=== PATIENT | female | born 1995 | race Caucasian/White ===

== ENCOUNTER 2017-10-30 12:32 | Observation (INO) | payer BC ==
[~2017-10-30] VITALS: Ht 160 cm; Wt 60.8 kg
[2017-10-30 12:54] VITALS: BP 120/80
[2017-10-30 13:16] LABS: BASO % 0 % (0-3); EOS % 0 % (0-3); HEMATOCRIT 43.7 % (36.0-47.0); LYMPH # 2.2 x10^3/uL (1.0-4.8); LYMPH % 23 % (24-48); MEAN CORPUSCULAR HEMOGLOBIN 32 pg (25-35); MEAN CORPUSCULAR HGB CONC 34 g/dL (31-37); MEAN CORPUSCULAR VOLUME 94 fL (79-100); MONO # 0.5 x10^3/uL (0.0-1.1); MONO % 5 % (0-9); NEUT # 6.9 x10^3uL (1.8-7.7); NEUT % 71 % (31-73); PLATELET COUNT 256 x10^3/uL (140-400); RED BLOOD COUNT 4.64 x10^6/uL (3.50-5.40); WHITE BLOOD COUNT 9.7 x10^3/uL (4.0-11.0)
--- NOTE | 2017-10-30 13:24 | NUR ---
NSG NOTE; ADMISSION ADMIT TO ROOM 115 AT 1245 VIA AMB ACCOMP BY PARENTS SHE WENT TO DR KRAMER'S OFFICE TODAY WITH C/O RUQ PAIN, EPIGASTRIC GAS AND BLOATING, WHERE THEY DISCOVERED HER HEART RATE TO BE 127.
[2017-10-30 13:46] LABS: BILIRUBIN,URINE NEG (NEG); CLARITY,URINE CLEAR; COLOR,URINE YELLOW; GLUCOSE,URINE NEG (NEG)
[2017-10-30 13:47] LABS: BACTERIA,URINE 0 /HPF (0-FEW); NITRITE,URINE NEG (NEG); RBC,URINE 0 /HPF (0-2); SQUAMOUS EPITHELIAL CELL,UR FEW /LPF; UROBILINOGEN,URINE 0.2 mg/dL (0.2 mg/dL); WBC,URINE 0 /HPF (0-4)
[2017-10-30] MEDS ORDERED: NORE-68 PO (13:51)
--- NOTE | 2017-10-30 13:53 | NUR ---
NSG NOTE; DR PRINCE CONSULT CALLED TO SHI MURO AT OFFICE AT 1330. I SPOKE WITH LUCINA MURO AT [id number] WHO STATED SHE WILL SEE THE PT IN THE AM
--- NOTE | 2017-10-30 14:02 | RAD ---
EXAM: Chest, 2 views. HISTORY: Tachycardia. COMPARISON: None. FINDINGS: 2 views of chest are obtained. There is no infiltrate, pleural effusion or pneumothorax. The heart is normal in size. IMPRESSION: No acute pulmonary finding. Electronically signed by: Sara Castañeda MD (10/30/2017 1:58 PM) [place] [id number]
[2017-10-30 14:04] LABS: ALBUMIN 4.5 g/dL (3.4-5.0); ALBUMIN/GLOBULIN RATIO 1.1 (1.0-1.7); CALCIUM 9.1 mg/dL (8.5-10.1); CREATININE 0.9 mg/dL (0.6-1.0); TOTAL BILIRUBIN 0.5 mg/dL (0.2-1.0); TOTAL PROTEIN 8.5 g/dL (6.4-8.2)
[2017-10-30 14:07] LABS: AMPHETAMINE/METHAMPHETAMINE NEG (NEG); BARBITURATES NEG (NEG); BENZODIAZEPINES NEG (NEG); CANNABINOIDS NEG (NEG); COCAINE NEG (NEG); METHADONE NEG (NEG); OPIATES NEG (NEG); PHENCYCLIDINE NEG (NEG)
[2017-10-30] MEDS ORDERED: ELECTROLYTE (NON-ICU) PROTOCOL MC PRN (15:00)
[2017-10-30 15:12] LABS: MAGNESIUM 1.8 mg/dL (1.8-2.4)
[2017-10-30 15:28] VITALS: BP 116/68
[2017-10-30] MEDS ORDERED: cefTRIAXone IV Push 1 GM VIAL. IVP SCH (15:30)
--- NOTE | 2017-10-30 16:03 | PDOC2 ---
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 She was noted to be tachycardic and consult was called. She was given one dose of metoprolol in the doctors office. she currently is resting comfortably and visiting with family. She denies chest pain or discomfort, dyspnea or syncope. She reports sensation of fast heart rate occasionally over the last couple days but thinks it has been more constant than intermittent. she denies other symptoms Current Medications Current Medications Apixaban (Eliquis) 2.5 mg BID PO ; Start 10/30/17 at 21:00 Ceftriaxone Sodium 1 gm/ Sodium Chloride 50 ml @ 100 mls/hr Q24H IV ; Start at 15:00; Status UNV Info (Non-Icu Electrolyte Protocol) 1 ea CONT PRN PRN MC PER PROTOCOL; Start at 15:00 Non-Formulary Medication (Noreth A-Et Estra/Fe Fumarate (Microgestin Fe 1.5-30 Tab)) 1 tab DAILY PO ; Start 10/31/17 at 09:00; Status UNV Ceftriaxone Sodium (Rocephin) 1 gm Q24H IVP ; Start 10/30/17 at 15:30 Active Scripts Active Reported Microgestin Fe 1.5-30 Tab (Noreth A-Et Estra/Fe Fumarate) 1 Each Tablet 1 Tab PO DAILY LAST DOSE GIVEN: DATE: TIME: NEXT DOSE DUE: DATE: TIME: Allergies: Coded Allergies: No Known Drug Allergies (Unverified , 10/30/17) General: Alert, Oriented X3, Cooperative, No acute distress HEENT: Atraumatic, EOMI, Mucous membr. moist/pink Lungs: Clear to auscultation, Normal air movement Heart: Regular rate, Normal S1, Normal S2, No murmurs, Other (no gallops clicks or rubs) Abdomen: Normal bowel sounds Extremities: No cyanosis, No edema, Normal pulses Neuro: Normal speech, Strength at 5/5 X4 ext Psych/Mental Status: Mental status NL, Mood NL VITALS Vital Signs Date Time Temp Pulse Resp B/P (MAP) Pulse Ox O2 Delivery O2 Flow Rate FiO2 9/13/18 15:28 98.7 104 20 116/68 (84) 99 Room Air Labs Laboratory Tests Test 10/30/17 12:58 10/30/17 13:00 White Blood Count 9.7 x10^3/uL (4.0-11.0) Red Blood Count 4.64 x10^6/uL (3.50-5.40) Hemoglobin 15.0 g/dL (12.0-15.5) Hematocrit 43.7 % (36.0-47.0) Mean Corpuscular Volume 94 fL (79-100) Mean Corpuscular Hemoglobin 32 pg (25-35) Mean Corpuscular Hemoglobin Concent 34 g/dL (31-37) Red Cell Distribution Width 12.0 % (11.5-14.5) Platelet Count 256 x10^3/uL (140-400) Neutrophils (%) (Auto) 71 % (31-73) Lymphocytes (%) (Auto) 23 % (24-48) Monocytes (%) (Auto) 5 % (0-9) Eosinophils (%) (Auto) 0 % (0-3) Basophils (%) (Auto) 0 % (0-3) Neutrophils # (Auto) 6.9 x10^3uL (1.8-7.7) Lymphocytes # (Auto) 2.2 x10^3/uL (1.0-4.8) Monocytes # (Auto) 0.5 x10^3/uL (0.0-1.1) Eosinophils # (Auto) 0.0 x10^3/uL (0.0-0.7) Basophils # (Auto) 0.0 x10^3/uL (0.0-0.2) Erythrocyte Sedimentation Rate 5 (0-25) D-Dimer (Tanisha) < 0.19 mg/L (0.00-0.50) Maternal Serum HCG Beta Subunit < 1 mIU/mL (0-6) Sodium Level 137 mmol/L (136-145) Potassium Level 3.0 mmol/L (3.5-5.1) Chloride Level 99 mmol/L (98-107) Carbon Dioxide Level 27 mmol/L (21-32) Anion Gap 11 (6-14) Blood Urea Nitrogen 11 mg/dL (7-20) Creatinine 0.9 mg/dL (0.6-1.0) Estimated GFR (Cockcroft-Gault) 79.0 BUN/Creatinine Ratio 12 (6-20) Glucose Level 109 mg/dL (70-99) Lactic Acid Level 2.9 mmol/L (0.4-2.0) Calcium Level 9.1 mg/dL (8.5-10.1) Magnesium Level 1.8 mg/dL (1.8-2.4) Total Bilirubin 0.5 mg/dL (0.2-1.0) Aspartate Amino Transf (AST/SGOT) 20 U/L (15-37) Alanine Aminotransferase (ALT/SGPT) 24 U/L (14-59) Alkaline Phosphatase 89 U/L (46-116) Creatine Kinase 95 U/L (26-192) Troponin I Quantitative < 0.017 ng/mL (0-0.055) Total Protein 8.5 g/dL (6.4-8.2) Albumin 4.5 g/dL (3.4-5.0) Albumin/Globulin Ratio 1.1 (1.0-1.7) Amylase Level 69 U/L (25-115) Urine Collection Type Unknown Urine Color Yellow Urine Clarity Clear Urine pH 6.0 Urine Specific [place] 1.015 Urine Protein Neg (NEG-TRACE) Urine Glucose (UA) Neg mg/dL (NEG) Urine Ketones (Stick) Neg mg/dL (NEG) Urine Blood Neg (NEG) Urine Nitrite Neg (NEG) Urine Bilirubin Neg (NEG) Urine Urobilinogen Dipstick 0.2 mg/dL (0.2 mg/dL) Urine Leukocyte Esterase Neg (NEG) Urine RBC 0 /HPF (0-2) Urine WBC 0 /HPF (0-4) Urine Squamous Epithelial Cells Few /LPF Urine Bacteria 0 /HPF (0-FEW) Urine Opiates Screen Neg (NEG) Urine Methadone Screen Neg (NEG) Urine Barbiturates Neg (NEG) Urine Phencyclidine Screen Neg (NEG) Urine Amphetamine/Methamphetamine Neg (NEG) Urine Benzodiazepines Screen Neg (NEG) Urine Cocaine Screen Neg (NEG) Urine Cannabinoids Screen Neg (NEG) Urine Ethyl Alcohol Neg (NEG) Images EKG sinus tachycardia without acute abn Assessment/Plan 1. sinus tachycardia - likely reactive. check echo for LV function and structure. Suggest outpatient MCT to evaluate for inappropriate sinus tach. 2. abd pain, ?gallbladder. per PCP JASON,LUCINA J COMMERCIAL SINGER Oct 30, 2017 16:03
--- NOTE | 2017-10-30 17:00 | EKG ---
[address] [address] Test Date: 2017-10-30 Test Time: 16:19:31 Pat Name: KARIS MAGAÑA Department: Room: 115 A Gender: F Communications Lead: : 1995 Requested By: LUCINA GOMEZ Order Number: [id number] Reading MD: Nishant Schulz MD Measurements Intervals [place] Rate: 97 P: 72 CT: 112 QRS: 82 QRSD: 82 T: 37 QT: 354 QTc: 454 Interpretive Statements SINUS RHYTHM Electronically Signed On 10-31-2017 12:25:02 CDT by Nishant Schulz MD
[2017-10-30 19:19] VITALS: BP 115/76
[2017-10-30] MEDS: APIXABAN 2.5 MG TABLET PO SCH (20:41)
[2017-10-30] MEDS: POTASSIUM CHLORIDE 20 MEQ/15 ML ORAL LIQUID. PO SCH ×2 (20:43→20:54)
--- NOTE | 2017-10-30 21:00 | NUR ---
Attempted to give initially dose of Eliquis. Reviewed application of the medication and risks/benefits with pt/family. Pt and family request to hold off on taking Eliquis until they can speech to the doctor in the am. Will notify on coming RN.
[2017-10-30] MEDS: POTASSIUM CHLORIDE 20 MEQ TABLET.ER. PO SCH (21:16)
--- NOTE | 2017-10-30 22:18 | NUR ---
Pt unable to tolerate liquid potassium, order switched to tablets.
[2017-10-30 22:58] VITALS: BP 111/67
[2017-10-31] MEDS: POTASSIUM CHLORIDE 20 MEQ TABLET.ER. PO SCH (01:15)
[2017-10-31 05:02] VITALS: BP 100/66
[2017-10-31 06:58] LABS: BASO % 1 % (0-3); EOS % 1 % (0-3); HEMATOCRIT 40.7 % (36.0-47.0); HEMOGLOBIN 14.1 g/dL (12.0-15.5); LYMPH # 2.5 x10^3/uL (1.0-4.8); LYMPH % 38 % (24-48); MEAN CORPUSCULAR HEMOGLOBIN 33 pg (25-35); MEAN CORPUSCULAR HGB CONC 35 g/dL (31-37); MEAN CORPUSCULAR VOLUME 94 fL (79-100); MONO # 0.5 x10^3/uL (0.0-1.1); MONO % 7 % (0-9); NEUT # 3.5 x10^3uL (1.8-7.7); NEUT % 54 % (31-73); PLATELET COUNT 226 x10^3/uL (140-400); RED BLOOD COUNT 4.33 x10^6/uL (3.50-5.40); RED CELL DISTRIBUTION WIDTH 12.1 % (11.5-14.5); WHITE BLOOD COUNT 6.5 x10^3/uL (4.0-11.0)
--- NOTE | 2017-10-31 07:55 | CARD ---
MR#: [id number] Date of Study: 10/30/2017 Ordering Physician: SADE KRAMER, Referring Physician: SADE KRAMER, Tech: Gladis Raymond APPROVED REPORT EXAM: Two-dimensional and M-mode echocardiogram with Doppler and color Doppler. Other Information Quality : GoodHR: 110bpm INDICATION Tachycardia 2D DIMENSIONS RVDd2.5 (2.9-3.5cm)Left Atrium(2D)1.8 (1.6-4.0cm) IVSd0.6 (0.7-1.1cm)Aortic Root(2D)2.6 (2.0-3.7cm) LVDd3.6 (3.9-5.9cm)LVOT Diameter2.0 (1.8-2.4cm) PWd0.9 (0.7-1.1cm)LVDs1.8 (2.5-4.0cm) FS (%) 50.1 %SV44.9 ml LVEF(%)82.3 (>50%) Aortic Valve AoV Peak Pierce.156.3cm/sAoV VTI30.9cm AO Peak GR.9.8mmHgLVOT Peak Pierce.124.8cm/s LVOT VTI 22.60cmAO Mean GR.6mmHg ANDRY (VMAX)2.61hi8XTV (VTI)2.23cm2 Mitral Valve MV E Equhsnjv25.7cm/sMV DECEL LITM516rz MV A Miexvzda79.2cm/sE/A Ratio0.9 Tricuspid Valve TR P. Akjmzpkw616ck/sRAP VKAPUEAQ8tuIp TR Peak Gr.51omXkIUXQ79utQw Pulmonary Vein S1 Kbawceqj69.7cm/sD2 Sgzmqygp81.0cm/s LEFT VENTRICLE The left ventricle is normal size. There is normal left ventricular wall thickness. The left ventricu lar systolic function is normal. The Ejection Fraction is 65-70%. There is normal LV segmental wall m otion. RIGHT VENTRICLE The right ventricle is normal size. There is normal right ventricular wall thickness. The right ventr icular systolic function is normal. ATRIA The left atrium size is normal. The right atrium size is normal. The interatrial septum is intact wit h no evidence for an atrial septal defect or patent foramen ovale as noted on 2-D or Doppler imaging. AORTIC VALVE The aortic valve is normal in structure and function. Doppler and Color Flow revealed no significant aortic regurgitation. There is no significant aortic valvular stenosis. MITRAL VALVE The mitral valve is normal in structure and function. There is no mitral valve stenosis. Doppler and Color Flow revealed no mitral valve regurgitation noted. TRICUSPID VALVE The tricuspid valve is normal in structure and function. Doppler and Color Flow revealed trace tricus pid regurgitation. There is no tricuspid valve stenosis. PULMONIC VALVE Doppler and Color Flow revealed no pulmonic valvular regurgitation. GREAT VESSELS The aortic root is normal in size. Normal pulmonary venous flow (Doppler). The IVC is normal in size and collapses >50% with inspiration. PERICARDIAL EFFUSION There is no evidence of significant pericardial effusion. Critical Notification Critical Value: No <Conclusion> The left ventricular systolic function is normal. The Ejection Fraction is 65-70%. There is normal LV segmental wall motion. Doppler and Color Flow revealed trace tricuspid regurgitation. There is no evidence of significant pericardial effusion. Signed by : Bill Whitaker, Electronically Approved : 10/31/2017 07:54:21
--- NOTE | 2017-10-31 08:08 | RAD ---
Abdominal ultrasound, 10/30/2017: HISTORY: Upper abdominal and chest pain The gallbladder is within normal limits in size. There is no sonographic evidence of cholelithiasis. The gallbladder shepard are not thickened. The common hepatic duct is of normal caliber. The visualized portions of the liver, pancreas, spleen and both kidneys show no abnormality. The abdominal aorta and inferior vena cava are unremarkable. No free fluid is evident in the abdomen. IMPRESSION: No significant abdominal abnormality is detected. Electronically signed by: Juwan Wright MD (10/31/2017 8:05 AM) [facility]
--- NOTE | 2017-10-31 08:56 | PDOC ---
PROGRESS NOTES Assessment 1. sinus tachycardia - likely reactive, currently improved. Telemetry reviewed. questionable episodes of atrial tachycardia. Echo WNL. Suggest outpatient event monitoring and follow up. FU scheduled 11/26/17 @3:30pm with Dr Schulz in the LV office. Subjective episodes of palpitations when someone walks through the door. reports being anxious. no chest pain, dyspnea or syncope. Objective Vital Signs Date Time Temp Pulse Resp B/P (MAP) Pulse Ox O2 Delivery O2 Flow Rate FiO2 10/31/17 05:02 98.4 93 20 100/66 (77) 98 Room Air Intake and Output 10/31/17 07:00 Intake Total 1810 ml Output Total 200 ml Balance 1610 ml Intake Oral 1810 ml Output Urine Total 200 ml # Voids 5 Heart: Regular rate, Normal S1, Normal S2, No murmurs Extremities: No cyanosis, No edema General: Alert, Oriented X3, Cooperative, No acute distress Lungs: Clear to auscultation Neuro: Strength at 5/5 X4 ext Psych/Mental Status: Mental status NL, Mood NL Review of Relevant I have reviewed the following items april (where applicable) has been applied. Labs Laboratory Tests Test 10/30/17 12:58 10/30/17 13:00 10/30/17 17:16 10/31/17 06:03 White Blood Count 9.7 x10^3/uL (4.0-11.0) 6.5 x10^3/uL (4.0-11.0) Red Blood Count 4.64 x10^6/uL (3.50-5.40) 4.33 x10^6/uL (3.50-5.40) Hemoglobin 15.0 g/dL (12.0-15.5) 14.1 g/dL (12.0-15.5) Hematocrit 43.7 % (36.0-47.0) 40.7 % (36.0-47.0) Mean Corpuscular Volume 94 fL (79-100) 94 fL (79-100) Mean Corpuscular Hemoglobin 32 pg (25-35) 33 pg (25-35) Mean Corpuscular Hemoglobin Concent 34 g/dL (31-37) 35 g/dL (31-37) Red Cell Distribution Width 12.0 % (11.5-14.5) 12.1 % (11.5-14.5) Platelet Count 256 x10^3/uL (140-400) 226 x10^3/uL (140-400) Neutrophils (%) (Auto) 71 % (31-73) 54 % (31-73) Lymphocytes (%) (Auto) 23 % (24-48) 38 % (24-48) Monocytes (%) (Auto) 5 % (0-9) 7 % (0-9) Eosinophils (%) (Auto) 0 % (0-3) 1 % (0-3) Basophils (%) (Auto) 0 % (0-3) 1 % (0-3) Neutrophils # (Auto) 6.9 x10^3uL (1.8-7.7) 3.5 x10^3uL (1.8-7.7) Lymphocytes # (Auto) 2.2 x10^3/uL (1.0-4.8) 2.5 x10^3/uL (1.0-4.8) Monocytes # (Auto) 0.5 x10^3/uL (0.0-1.1) 0.5 x10^3/uL (0.0-1.1) Eosinophils # (Auto) 0.0 x10^3/uL (0.0-0.7) 0.0 x10^3/uL (0.0-0.7) Basophils # (Auto) 0.0 x10^3/uL (0.0-0.2) 0.0 x10^3/uL (0.0-0.2) Erythrocyte Sedimentation Rate 5 (0-25) D-Dimer (Tanisha) < 0.19 mg/L (0.00-0.50) Maternal Serum HCG Beta Subunit < 1 mIU/mL (0-6) Sodium Level 137 mmol/L (136-145) Potassium Level 3.0 mmol/L (3.5-5.1) Chloride Level 99 mmol/L (98-107) Carbon Dioxide Level 27 mmol/L (21-32) Anion Gap 11 (6-14) Blood Urea Nitrogen 11 mg/dL (7-20) Creatinine 0.9 mg/dL (0.6-1.0) Estimated GFR (Cockcroft-Gault) 79.0 BUN/Creatinine Ratio 12 (6-20) Glucose Level 109 mg/dL (70-99) Lactic Acid Level 2.9 mmol/L (0.4-2.0) 1.2 mmol/L (0.4-2.0) Calcium Level 9.1 mg/dL (8.5-10.1) Magnesium Level 1.8 mg/dL (1.8-2.4) Total Bilirubin 0.5 mg/dL (0.2-1.0) Aspartate Amino Transf (AST/SGOT) 20 U/L (15-37) Alanine Aminotransferase (ALT/SGPT) 24 U/L (14-59) Alkaline Phosphatase 89 U/L (46-116) Creatine Kinase 95 U/L (26-192) Troponin I Quantitative < 0.017 ng/mL (0-0.055) Total Protein 8.5 g/dL (6.4-8.2) Albumin 4.5 g/dL (3.4-5.0) Albumin/Globulin Ratio 1.1 (1.0-1.7) Amylase Level 69 U/L (25-115) Urine Collection Type Unknown Urine Color Yellow Urine Clarity Clear Urine pH 6.0 Urine Specific [place] 1.015 Urine Protein Neg (NEG-TRACE) Urine Glucose (UA) Neg mg/dL (NEG) Urine Ketones (Stick) Neg mg/dL (NEG) Urine Blood Neg (NEG) Urine Nitrite Neg (NEG) Urine Bilirubin Neg (NEG) Urine Urobilinogen Dipstick 0.2 mg/dL (0.2 mg/dL) Urine Leukocyte Esterase Neg (NEG) Urine RBC 0 /HPF (0-2) Urine WBC 0 /HPF (0-4) Urine Squamous Epithelial Cells Few /LPF Urine Bacteria 0 /HPF (0-FEW) Urine Opiates Screen Neg (NEG) Urine Methadone Screen Neg (NEG) Urine Barbiturates Neg (NEG) Urine Phencyclidine Screen Neg (NEG) Urine Amphetamine/Methamphetamine Neg (NEG) Urine Benzodiazepines Screen Neg (NEG) Urine Cocaine Screen Neg (NEG) Urine Cannabinoids Screen Neg (NEG) Urine Ethyl Alcohol Neg (NEG) Lipase 99 U/L (73-393) Medications Current Medications Apixaban (Eliquis) 2.5 mg BID PO ; Start 10/30/17 at 21:00 Ceftriaxone Sodium 1 gm/ Sodium Chloride 50 ml @ 100 mls/hr Q24H IV ; Start at 15:00; Status UNV Info (Non-Icu Electrolyte Protocol) 1 ea CONT PRN PRN MC PER PROTOCOL; Start at 15:00 Non-Formulary Medication (Noreth A-Et Estra/Fe Fumarate (Microgestin Fe 1.5-30 Tab)) 1 tab DAILY PO ; Start 10/31/17 at 09:00; Status UNV Ceftriaxone Sodium (Rocephin) 1 gm Q24H IVP Last administered on 10/30/17at 17: 27; Start 10/30/17 at 15:30 Potassium Chloride (KCl Oral Soln) 40 meq Q4H PO ; Start 10/30/17 at 21:00; Stop 10/30/17 at 21:02; Status DC Potassium Chloride (Klor-Con) 40 meq Q4HRS PO Last administered on 10/31/17at 01 :15; Start 10/30/17 at 21:00; Stop 10/31/17 at 00:01; Status DC Active Scripts Active Reported Microgestin Fe 1.5-30 Tab (Noreth A-Et Estra/Fe Fumarate) 1 Each Tablet 1 Tab PO DAILY LAST DOSE GIVEN: DATE: TIME: NEXT DOSE DUE: DATE: TIME: Vitals/I & O Vital Sign - Last 24 Hours 10/30/17 10/30/17 10/30/17 10/30/17 12:54 13:26 15:28 19:19 Temp 98.3 98.7 97.4 Pulse 119 104 95 Resp 20 20 20 B/P (MAP) 120/80 (93) 116/68 (84) 115/76 (89) Pulse Ox 99 99 100 O2 Delivery Room Air Room Air Room Air 10/30/17 10/30/17 10/31/17 19:50 22:58 05:02 Temp 97.6 98.4 Pulse 82 93 Resp 18 20 B/P (MAP) 111/67 (82) 100/66 (77) Pulse Ox 98 98 O2 Delivery Room Air Room Air Room Air Intake and Output 10/30/17 10/30/17 10/31/17 15:00 23:00 07:00 Intake Total 360 ml 1450 ml Output Total 200 ml Balance -200 ml 360 ml 1450 ml LUCINA GOMEZ MACHINE FIXER Oct 31, 2017 08:56
[2017-10-31] MEDS ORDERED: FE FUMARATE PO SCH (09:00)
[2017-10-31] MEDS: APIXABAN 2.5 MG TABLET PO SCH (09:00)
[2017-10-31] MEDS ORDERED: NORETH A ET ESTRA PO SCH (09:00)
[2017-10-31 10:38] VITALS: BP 105/69
--- NOTE | 2017-10-31 11:38 | NUR ---
NURSING DISCHARGE NOTE: Patient discharged to home via ambulation and accompanied by family. Verbal and written medication and follow up instructions were given and understanding was acknowledged.
[2017-10-31] MEDS ORDERED: LACTOBACILLUS RHAMNOSUS GG 1 CAPSULE. PO SCH (21:00)
== END 2017-10-31 11:40 | disposition home or self-care (01) ==
LOC: INTOOBSV 12:32 → 1 SOUTH 12:32
PROVIDERS: ADMIT Family Medicine; ATTEND Family Medicine
DX: R00.0 Tachycardia, unspecified (principal); K21.9 Gastro-esophageal reflux disease without esophagitis
CPT/HCPCS: 36415; 71046; 76700; 80053; 80307; 81001; 82150; 82550; 83605; 83690; 83735; 84443; 84484; 84702; 85025; 85379; 85651; 87086; 93005; 93306; 96374; G0378; G0379; J0696; G0479

== ENCOUNTER → 2019-01-25 | Outpatient (CLI) | payer BC ==
[~2019-01-25] MED LIST: IOHEXOL 240 MG/ML 50ML VIAL. PO ONE; IOHEXOL 300 MG/ML 75 ML VIAL. IV ONE; IOHEXOL 350 MG/ML 100 ML VIAL. IV ONE; NORE-68 PO
[2019-01-25 11:37] LABS: BASO % 1 % (0-3); EOS % 0 % (0-3); HEMATOCRIT 40.8 % (36.0-47.0); HEMOGLOBIN 13.7 g/dL (12.0-15.5); LYMPH # 1.8 x10^3/uL (1.0-4.8); LYMPH % 33 % (24-48); MEAN CORPUSCULAR HEMOGLOBIN 32 pg (25-35); MEAN CORPUSCULAR HGB CONC 33 g/dL (31-37); MEAN CORPUSCULAR VOLUME 96 fL (79-100); MONO # 0.3 x10^3/uL (0.0-1.1); MONO % 6 % (0-9); NEUT # 3.4 x10^3uL (1.8-7.7); NEUT % 60 % (31-73); PLATELET COUNT 195 x10^3/uL (140-400); RED BLOOD COUNT 4.25 x10^6/uL (3.50-5.40); RED CELL DISTRIBUTION WIDTH 12.4 % (11.5-14.5); WHITE BLOOD COUNT 5.6 x10^3/uL (4.0-11.0)
[2019-01-25 11:53] LABS: ALBUMIN 3.8 g/dL (3.4-5.0); ALBUMIN/GLOBULIN RATIO 1.1 (1.0-1.7); CALCIUM 8.7 mg/dL (8.5-10.1); CREATININE 0.8 mg/dL (0.6-1.0); GFR 89.7; POTASSIUM 3.7 mmol/L (3.5-5.1); TOTAL BILIRUBIN 0.4 mg/dL (0.2-1.0); TOTAL PROTEIN 7.3 g/dL (6.4-8.2)
--- NOTE | 2019-01-25 12:16 | RAD ---
CT ABD PELV W/ORAL IV CONTRAST History: Epigastric pain. Nausea and vomiting. Technique: After the administration of oral and intravenous contrast, CT imaging was performed of the abdomen and pelvis. Multiplanar images are reviewed. Exposure: One or more of the following individualized dose reduction techniques were utilized for this examination: 1. Automated exposure control 2. Adjustment of the mA and/or kV according to patient size 3. Use of iterative reconstruction technique. Comparison: None Findings: Lower chest: No consolidation or pleural effusion. Abdomen and pelvis: The liver, spleen, adrenal glands, pancreas and gallbladder are unremarkable. Normal appearance of the kidneys. No hydronephrosis. No renal calculi. Normal appendix. No evidence of bowel obstruction. Oral contrast opacifies to the level of the distal small bowel. No pathologic lymphadenopathy. No ascites. Left ovarian follicle measures 1.9 cm. Otherwise, the pelvic contents are unremarkable. Bones: No pathologic osseous lesions. Impression: 1. No acute intra-abdominal or pelvic pathology. Electronically signed by: Jimmy Suarez DO (01/25/2019 12:14 PM) [id number]
== END | disposition home or self-care (01) ==
LOC: CT 10:16
PROVIDERS: ATTEND Family Medicine
DX: R10.13 Epigastric pain (principal); R11.10 Vomiting, unspecified
CPT/HCPCS: 36415; 74177; 80053; 82150; 83690; 85025; Q9966; Q9967

== ENCOUNTER → 2019-03-22 | Outpatient (CLI) | payer BC ==
[~2019-03-22] MED LIST changes: -IOHEXOL 240 MG/ML 50ML VIAL. PO ONE; -IOHEXOL 300 MG/ML 75 ML VIAL. IV ONE; -IOHEXOL 350 MG/ML 100 ML VIAL. IV ONE; +SINCALIDE 1.24 MCG in IV NORMAL SALINE 50ML 30 ML IV ONE
--- NOTE | 2019-03-22 08:53 | RAD ---
EXAM: Abdomen sonogram. HISTORY: Pain. TECHNIQUE: Sonographic imaging of the abdomen was performed. COMPARISON: 01/25/2019. FINDINGS: The liver is normal in size. No focal hepatic lesion is seen. The common bile duct is normal in caliber. The gallbladder wall is normal thickness. The right kidney, pancreas, aorta and inferior vena cava are unremarkable. IMPRESSION: Unremarkable abdomen sonogram. Electronically signed by: Sara Castañeda MD (03/22/2019 8:50 AM) [id number]
--- NOTE | 2019-03-22 14:49 | RAD ---
EXAM: HEPATOBILIARY SCINTIGRAPHY WITH GALLBLADDER EJECTION FRACTION CALCULATION. HISTORY: Abdominal and epigastric pain, intermittent for the past 6 months with nausea and vomiting. TECHNIQUE: 5 mCi technetium-99m Choletec were administered intravenously and scintigraphic images of the abdomen obtained. After filling of the gallbladder, 1.24 mcg of sincalide were infused and the gallbladder ejection fraction calculated. FINDINGS: There is prompt hepatic clearance of tracer from the blood pool. There is homogeneous distribution throughout the liver. Gallbladder activity is observable within 5 minutes post injection with progressive fill in over 60 minutes of imaging. Appropriate decrease in activity in the region of interest over the gallbladder is observed post sincalide infusion. The gallbladder ejection fraction is 94 % (normal >35%). IMPRESSION: 1. Normal HIDA scan with normal gallbladder ejection fraction. Electronically signed by: Cassidy Choi MD (03/22/2019 2:46 PM) [facility]
== END | disposition home or self-care (01) ==
LOC: US 07:53
PROVIDERS: ATTEND Internal Medicine Gastroenterology
DX: R10.13 Epigastric pain (principal); R11.2 Nausea with vomiting, unspecified
CPT/HCPCS: 76705; 78227; A9537; J2805

== ENCOUNTER → 2021-05-22 | Outpatient (CLI) | payer BC ==
[~2021-05-22] MED LIST changes: -SINCALIDE 1.24 MCG in IV NORMAL SALINE 50ML 30 ML IV ONE
[2021-05-23 01:07] LABS: ESTRADIOL LEVEL 6.5 pg/mL (.); FSH 5.3 mIU/mL (.); LUTEINIZING HORMONE 3.2 mIU/mL (.)
== END ==
LOC: LAB 14:27
PROVIDERS: ATTEND Obstetrics & Gynecology
DX: R23.2 Flushing (principal)
CPT/HCPCS: 36415; 82670; 83001; 83002

== ENCOUNTER → 2021-06-26 | Outpatient (CLI) | payer BC ==
[2021-06-27 00:07] LABS: ESTRADIOL LEVEL 27.4 pg/mL (.); FSH 8.2 mIU/mL (.); LUTEINIZING HORMONE 5.9 mIU/mL (.)
== END ==
LOC: LAB 15:23
PROVIDERS: ATTEND Obstetrics & Gynecology
DX: Z01.419 Encounter for gynecological examination (general) (routine) without abnormal findings (principal); R23.2 Flushing
CPT/HCPCS: 36415; 82670; 83001; 83002